=== PATIENT | male | born 1945 | race African-American/Black ===

== ENCOUNTER 2018-09-05 17:36 | Inpatient (IN) | payer MEDICARE ==
[~2018-09-05] VITALS: Ht 177.8 cm; Wt 79.3 kg
[2018-09-05 18:00] VITALS: BP 183/125
[2018-09-05 18:36] LABS: ABSOLUTE NEUTROPHILS 6.3 thou/uL (1.4-8.2); BASOPHILS 0.5 % (0.0-2.0); EOSINOPHILS 1.1 % (0.0-3.0); HEMATOCRIT 40.3 % (42.0-52.0); HEMOGLOBIN 14.2 gm/dL (14.0-18.0); LYMPHOCYTES 12.6 % (24.0-44.0); MCH 31.1 pg (26.0-34.0); MCHC 35.2 g/dL (28.0-37.0); MCV 88.5 fL (80.0-100.0); MONOCYTES 9.1 % (1.0-8.0); PLATELET COUNT 198 thou/uL (150-400); POLYS 76.7 % (36.0-66.0); RBC 4.56 mil/uL (4.50-6.00); RDW 13.3 % (10.5-14.5); WBC 8.2 thou/uL (4.0-11.0)
[2018-09-05 18:43] LABS: CREATININE 2.6 mg/dL (0.7-1.3); POTASSIUM 3.3 mmol/L (3.5-5.1)
[2018-09-05 18:46] LABS: URINE BILIRUBIN NEGATIVE (Negative); URINE BLOOD TRACE (Negative); URINE CLARITY CLEAR; URINE COLOR YELLOW; URINE GLUCOSE-RANDOM* NEGATIVE (Negative); URINE KETONES TRACE (Negative); URINE NITRITE-REFLEX NEGATIVE (Negative); URINE PROTEIN (DIPSTICK) NEGATIVE (Negative); URINE UROBILINOGEN 0.2 E.U./dl (0.2-1.0)
[2018-09-05 18:47] LABS: URINE LEUKOCYTES-REFLEX 2+ (Negative)
[2018-09-05 18:49] LABS: ALBUMIN 3.6 g/dL (3.4-5.0); DIRECT BILIRUBIN 0.2 mg/dL (<0.1-0.3); TOTAL BILIRUBIN 0.8 mg/dL (<0.1-1.0); TOTAL PROTEIN 9.2 g/dL (6.4-8.2)
[2018-09-05 18:56] LABS: BACTERIA-REFLEX None Seen /HPF (None Seen); CASTS None Seen /LPF (None Seen); CRYSTALS None Seen /LPF (None Seen); SQUAMOUS None Seen /LPF (0-3); URINE RBC 0-2 Rare /HPF (0-2); URINE WBC-REFLEX >25 Many /HPF (0-5); WBC CLUMPS Few (None Seen)
[2018-09-05 20:41] VITALS: BP 151/109
[2018-09-05 20:51] VITALS: BP 161/118
[2018-09-05 21:10] VITALS: BP 161/118
[2018-09-05 22:20] VITALS: BP 171/114
[2018-09-06] VITALS: BP 154/73
[2018-09-06 04:20] VITALS: BP 155/96
[2018-09-06] MEDS ORDERED: ALPHAGAN P5 ML OPHTHALMIC (04:37)
--- NOTE | 2018-09-06 05:37 | NUR ---
PT ARRIVED FROM ER VIA CART. PLACED IN ROOM 355. ADMISSION ASSESSMENTS COMPLETED. PT REPORTING "PRESSURE" TYPE OF GENERALIZED ABDOMINAL PAIN. ALSO REPORTED LOWER BACK PAIN. "LIKE A BELT THAT IS ON REALLY TIGHT." DENIED ANY NAUSEA. REPORTS THAT HE HAS NO TROUBLE SWALLOWING LIQUIDS BUT HAS BEEN UNABLE TO SWALLOW IN SOLID FOODS FOR TWO WEEKS. SHORTLY AFTER ARRIVING TO THE UNIT PT HAD (BY REPORT) TWO LARGE AND LOOSE DARK BROWN STOOLS. THIS AM PT IS STATING THAT THE ABDOMINAL PAIN AND LOWER BACK PAIN IS VIRTUALLY ABSENT. REINSTRUCTED TO BE NPO.
[2018-09-06 05:47] LABS: CALCIUM 9.1 mg/dL (8.5-10.1); POTASSIUM 3.4 mmol/L (3.5-5.1)
[2018-09-06 07:30] VITALS: BP 152/104
[2018-09-06] MEDS ORDERED: DORZOLAMIDE-TI1 EACH OPHTHALMIC (12:13)
--- NOTE | 2018-09-06 15:04 | NUR ---
INITIAL ASSESSMENT: SW reviewed chart. Pt was admitted from home due to abdominal pain/dysphagia/ CORRIE. GI consulted. Pt to have EGD. SW met with pt and at bedside. Pt was sleeping during time of SW visit. Introduced role of SW to pt's . Pt is normally alert/orientated x 4. Pt and spouse live in a one-level home. No steps to enter. Prior to admission, pt was independent with ADLs. No hx of HH or SNF/Rehab placement. Pt's PCP is Dr. Sparks. Pt also sees Dr. Cheikh Kennedy at [facility] and urologist, Dr. De La Garza at [facility]. Pt's states pt has not had appetite and not eating for last 2-3 weeks. Pt with about 20 lb weight loss. Per pt's , he has been unable to eat solid foods. Pt has been drinking Ensure and Boost. Awaiting tests at this time. Plan is for pt to discharge home when medically stable. SW is following to assist as needed with discharge planning.
--- NOTE | 2018-09-06 17:09 | NUR ---
PT ALERT AND ORIENTED X4, EGD COMPLETED, RESULTS REVIEWED BY GI WITH PT AND . FULL LIQUID DIET ORDERED. DISCUSSED WITH PT NEW DENTURES, IS THINKING THAT MAYBE PT TEETH ARE NOT FITTING APPROPRIATELY. WILL PASS ON IN REPORT TO PAINTING TRADES WORKER TO MENTION TO SPEECH THERAPY ABOUT TEETH FITTING. WILL CONTINUE TO MONITOR.
[2018-09-06 19:55] VITALS: BP 130/81
[2018-09-07 04:45] VITALS: BP 142/76
[2018-09-07 05:46] LABS: ALBUMIN 3.2 g/dL (3.4-5.0); CALCIUM 8.6 mg/dL (8.5-10.1); CREATININE 1.4 mg/dL (0.7-1.3); PHOSPHORUS 3.4 mg/dL (2.5-4.9); POTASSIUM 3.1 mmol/L (3.5-5.1)
--- NOTE | 2018-09-07 06:23 | NUR ---
PT MAKING PROGRESS TOWARDS GOALS. PT ONLY REPORTING MILD ABDOMINAL DISCOMFORT AND "TENDER." UP TO TOILET AND USING URINAL. STEADY AND STABLE GAIT. NO BM REPORTED OVERNIGHT.
[2018-09-07 07:34] VITALS: BP 177/96
[2018-09-07] MEDS ORDERED: REGLAN 10 MG TA10 MG PO (10:06)
[2018-09-07] MEDS ORDERED: CEFUROXIME250 MG PO (10:09)
--- NOTE | 2018-09-07 13:53 | NUR ---
DISCHARGE NOTE: SW reviewed chart and spoke with nursing and attending physician. Pt is medically stable for discharge home today. Pt's family at bedside will provide transportation home. No additional SW needs identified at this time, but is available to assist should needs arise.
--- NOTE | 2018-09-07 14:54 | NUR ---
Assumed care of patient at 0700. Patient is A&Ox4, is up ad monik, is steady and stable. All ADLs are independent. Patient denies all pain. Reports BM this morning that was formed/hard, and helped relieve abdominal pain. Patient went for a swallow study. Results showed that esophagus is being compressed by "diffuse calcification along the anterior cervical spine" preventing the passage of solid foods. As a result, patient is to remain on full liquid diet until further treatment can be done. present at bedside and together with patient advised on importance of nutritional intake via Ensure, etc. Patient also went for a CT of neck soft tissue but results are still pending. Patient is progressing toward POC goals. Will continue to monitor and assess.
[2018-09-07 15:56] VITALS: BP 152/105
[2018-09-07 17:18] VITALS: BP 152/105
[2018-09-07 17:21] VITALS: BP 152/105
--- NOTE | 2018-09-07 17:56 | NUR ---
Discussed results of CT soft tissue / neck with Dr. García. Physician relayed results of scan to patient and via phone update. Okay to discharge per GI stand-point. Suggest referral to neurosurgeon, Dr. Edgardo Dhillon, based on CT results. Patient to call GI office on Monday to receive additional information regarding neurosurgeon referral. Reviewed discharge instructions, follow up referrals, diet, and new meds with patient and at bedside. Called prescriptions into [facility] per patient request; spoke with Kathleen. Verbalize understanding of DC instructions. IV discontinued. Home medications returned to patient. Belongings gathered. Transported to private vehicle to DC home via wheelchair.
--- NOTE | 2018-09-11 20:56 | P ---
[facility] [place] [address] PROCEDURE REPORT Name: GREGG SNIDER JR Room #: 355-P [facility] IN M.R.#: [id number] Admission: 09/05/18 ������������������ Attend Phys: Tiago Plunkett Discharge: 09/07/18 ������������������ Date of : 43 Report #: [id number] THIS REPORT FOR: //name// CC: Tiago Sparks MD PROCEDURE: Diagnostic EGD. Patient of Dr. Akbar Spraks and Dr. Plunkett. INDICATION FOR PROCEDURE: This patient has been experiencing solid food dysphagia for the last 2-3 weeks. He has been unable to eat any type of solid food. He is admitted with acute kidney injury, urinary tract infection, and constipation. We are asked to see him for dysphagia. The patient denies dysphagia to liquids. EGD is recommended for evaluation of the esophagus at this time and the patient is agreeable to this test. Informed consent for this procedure was obtained prior to the administration of any medication. The risks of the procedure, which include bleeding, perforation, infection, complications of sedation and the possibility I could miss something have been explained to the patient and he has indicated his consent by signing. DESCRIPTION OF PROCEDURE: Propofol was slowly titrated before and during this procedure for the patient comfort by the Anesthesia service. The Olympus upper videoscope was introduced through the upper esophageal sphincter and advanced under direct visualization to the third portion of the duodenum. Findings are noted on withdrawal of the scope. The visualized portion of the second portion of the duodenum and the duodenal bulb appear normal. Pylorus, normal mucosa. Antrum, normal mucosa. Body, normal mucosa. Cardia and fundus, normal mucosa. Retroflex view did not reveal any hiatal hernia. The scope was withdrawn into the esophagus. The esophageal mucosa appeared normal throughout its entirety. The esophageal lumen appears to be widely patent without any evidence of any type of stricture or inflammation. The scope was withdrawn. The patient went to the recovery area in stable condition. He tolerated the procedure well. IMPRESSION: Normal EGD to descending duodenum. The etiology of his dysphagia is not entirely clear to me. I will recommend a speech therapy evaluation. I would also recommend that he avoid calcium channel blockers because they may interfere with esophageal motility. [address] [address] PROCEDURE REPORT Name: GREGG SNIDER Room #: 355-P [facility]..#: [id number] Admission: 09/05/18 ������������������ Attend Phys: Tiago Plunkett Discharge: 09/07/18 ������������������ Date of : 43 Report #: [id number] Thank you very much once again for allowing me to participate in his care, Dr. Sparks and Dr. Plunkett. ��������������������������������������������� <ELECTRONICALLY SIGNED> ���������������������������������������� By: Trina Barksdale DO ��������������������������������������������� 09/11/18 [id number] Trina Barksdale DO /nt
== END 2018-09-07 18:03 | disposition home or self-care (01) | DRG 391 ==
LOC: ER 17:36 → 3W 20:17 → EROBS 20:17 → 3W 21:42 → ENTRNSPT 09-07 17:43 → 3W 09-07 18:03
PROVIDERS: Emergency Medicine; Nurse Practitioner Acute Care; ADMIT Hospitalist
PROC: 0DJ08ZZ Inspection of Upper Intestinal Tract, Via Natural or Artificial Opening Endoscopic (ICD-10-PCS; principal; 2018-09-05)
DX: R13.10 Dysphagia, unspecified (principal); N17.0 Acute kidney failure with tubular necrosis; N17.9 Acute kidney failure, unspecified; N39.0 Urinary tract infection, site not specified; M48.12 Ankylosing hyperostosis [Forestier], cervical region; H40.9 Unspecified glaucoma; K59.00 Constipation, unspecified; E87.6 Hypokalemia; G89.29 Other chronic pain; M54.9 Dorsalgia, unspecified; Z86.010 Personal history of colon polyps; Z87.11 Personal history of peptic ulcer disease; Z79.899 Other long term (current) drug therapy
CPT/HCPCS: 10080; 62110; 62900; 70005